=== PATIENT | male | born 1995 | race Caucasian/White ===

== ENCOUNTER 2017-12-22 20:23 | Emergency (ER) | payer BC ==
--- NOTE | 2017-12-22 20:43 | ER Report ---
History and Physical Time Seen By MD: 20:43 Hx. of Stated Complaint: pt states has had "heart" pain for 10 days, tonight it is more pressure, no breathing difficulty, has had "heat flashes" HPI/ROS CHIEF COMPLAINT: chest pain HISTORY OF PRESENT ILLNESS: This is a 22 year old male. He has been having pain, central chest, non-radiating, for about 10 days. Not always there, but most of the time. Sharp and pressure like. Perhaps a little worse with breathing. No fevers or chills. No cough or shortness of breath. No change with eating and swallowing normally. No nausea or vomiting. Normal bowel movements. Normal urina tion. No history of problems like this in the past. Had a GI bug about 2 weeks ago. No history of ulcers or reflux symptoms. No heart problems or lung problems in the past. He is here going to school from [place], [place]. Allergies: Coded Allergies: No Known Drug Allergies (Unverified , 12/22/17) Home Meds No Active Prescriptions or Reported Meds Reviewed Nurses Notes: Yes Hx Substance Use Disorder: No Hx Alcohol Use: Yes (couple on weekends) Constitutional Vital Sign - Last 24 Hours 12/22/17 12/22/17 12/22/17 12/22/17 20:28 20:28 20:53 21:21 Temp 98.9 Pulse 85 83 Resp 20 11 B/P (MAP) 158/100 158/100 (119) 151/86 (107) Pulse Ox 95 94 O2 Delivery Room Air 12/22/17 12/22/17 12/22/17 21:23 21:30 21:35 Pulse 92 80 Resp 16 9 B/P (MAP) 136/92 (107) Pulse Ox 94 94 Physical Exam General Appearance: The patient is alert. No acute distress. Non-toxic in appearance. Eyes: Pupils are equal, round. No pallor, injection or icterus. ENT: Mucous membranes are moist. Normal oral mucosa. Posterior oropharynx is normal. Neck: Supple and non tender. Respiratory: Lungs are clear to auscultation. Cardiovascular: Regular rate and rhythm. No murmurs, gallops or rubs. Normal capillary refill. Gastrointestinal: Abdomen is soft and non tender. Nondistended. Normal active bowel sounds. No costovertebral angle tenderness with percussion. Neurological: Alert and oriented x3. Skin: Warm and dry. No rashes. Musculoskeletal: Extremities are nontender. No tenderness in palpation of the cervical, thoracic and lumbar spine. No pain with palpating chest wall DIFFERENTIAL DIAGNOSIS: After history and physical exam, differential diagnosis was considered for chest pain including but not limited to myocardial ischemia, pericarditis pulmonary embolus, chest wall pain, pleural inflammation and pulmonary infectious causes. Medical Decision Making Data Points Result Diagram: 12/22/17203712/22/172037 Laboratory Hematology Test 12/22/17 20:38 Red Blood Count 5.43 M/uL (4.00-5.60) Mean Corpuscular Volume 89.8 fL (80.0-96.0) Mean Corpuscular Hemoglobin 31.4 pg (26.0-33.0) Mean Corpuscular Hemoglobin Concent 35.0 g/dL (32.0-36.0) Red Cell Distribution Width 13.2 % (11.5-14.5) Mean Platelet Volume 7.6 fL (7.2-11.1) Neutrophils (%) (Auto) 47.2 % (39.4-72.5) Lymphocytes (%) (Auto) 40.1 % (17.6-49.6) Monocytes (%) (Auto) 9.5 % (4.1-12.4) Eosinophils (%) (Auto) 2.3 % (0.4-6.7) Basophils (%) (Auto) 0.9 % (0.3-1.4) Nucleated RBC Relative Count (auto) 0.0 /100WBC Neutrophils # (Auto) 3.4 K/uL (2.0-7.4) Lymphocytes # (Auto) 2.9 K/uL (1.3-3.6) Monocytes # (Auto) 0.7 K/uL (0.3-1.0) Eosinophils # (Auto) 0.2 K/uL (0.0-0.5) Basophils # (Auto) 0.1 K/uL (0.0-0.1) Nucleated RBC Absolute Count (auto) 0.00 K/uL D-Dimer Quantitative (PE/DVT) < 0.27 ug/ml (0-0.50) Sodium Level 140 mmol/L (137-145) Potassium Level 3.6 mmol/L (3.5-5.0) Chloride Level 100 mmol/L (98-107) Carbon Dioxide Level 28 mmol/L (22-30) Blood Urea Nitrogen 14 mg/dl (9-21) Creatinine 1.20 mg/dl (0.66-1.25) Glomerular Filtration Rate Calc > 60.0 Random Glucose 93 mg/dl (75-110) Calcium Level 9.8 mg/dl (8.4-10.2) Total Bilirubin 0.7 mg/dl (0.2-1.3) Aspartate Amino Transf (AST/SGOT) 29 U/L (0-35) Alanine Aminotransferase (ALT/SGPT) 17 U/L (0-56) Alkaline Phosphatase 68 U/L (0-126) Troponin I < 0.012 ng/ml Total Protein 8.3 g/dl (6.3-8.2) Albumin 5.1 g/dl (3.5-5.0) Chemistry Test 12/22/17 20:38 White Blood Count 7.1 k/uL (4.5-11.0) Red Blood Count 5.43 M/uL (4.00-5.60) Hemoglobin 17.1 g/dL (14.0-18.0) Hematocrit 48.7 % (42.0-52.0) Mean Corpuscular Volume 89.8 fL (80.0-96.0) Mean Corpuscular Hemoglobin 31.4 pg (26.0-33.0) Mean Corpuscular Hemoglobin Concent 35.0 g/dL (32.0-36.0) Red Cell Distribution Width 13.2 % (11.5-14.5) Platelet Count 285 K/uL (150-450) Mean Platelet Volume 7.6 fL (7.2-11.1) Neutrophils (%) (Auto) 47.2 % (39.4-72.5) Lymphocytes (%) (Auto) 40.1 % (17.6-49.6) Monocytes (%) (Auto) 9.5 % (4.1-12.4) Eosinophils (%) (Auto) 2.3 % (0.4-6.7) Basophils (%) (Auto) 0.9 % (0.3-1.4) Nucleated RBC Relative Count (auto) 0.0 /100WBC Neutrophils # (Auto) 3.4 K/uL (2.0-7.4) Lymphocytes # (Auto) 2.9 K/uL (1.3-3.6) Monocytes # (Auto) 0.7 K/uL (0.3-1.0) Eosinophils # (Auto) 0.2 K/uL (0.0-0.5) Basophils # (Auto) 0.1 K/uL (0.0-0.1) Nucleated RBC Absolute Count (auto) 0.00 K/uL D-Dimer Quantitative (PE/DVT) < 0.27 ug/ml (0-0.50) Glomerular Filtration Rate Calc > 60.0 Calcium Level 9.8 mg/dl (8.4-10.2) Total Bilirubin 0.7 mg/dl (0.2-1.3) Aspartate Amino Transf (AST/SGOT) 29 U/L (0-35) Alanine Aminotransferase (ALT/SGPT) 17 U/L (0-56) Alkaline Phosphatase 68 U/L (0-126) Troponin I < 0.012 ng/ml Total Protein 8.3 g/dl (6.3-8.2) Albumin 5.1 g/dl (3.5-5.0) Coagulation Test 12/22/17 20:38 D-Dimer Quantitative (PE/DVT) < 0.27 ug/ml EKG/Imaging EKG Interpretation 12 lead EKG: Rhythm: normal sinus rhythm, rate 76 [place]: normal QRS: Incomplete right bundle branch block ST segments: No ST elevation or depression noted Imaging CHEST: Indication: Chest pain. Technique: Frontal and lateral views were obtained. Comparison: None. 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 No acute skeletal deformity is identified. Heart and mediastinum: Within normal limits. Lung fournier: Well-expanded and clear. Pleural spaces: Unremarkable. Impression: No acute process. Report Dictated By: Paul Mccormack MD at 12/22/2017 9:44 PM ED Course/Re-evaluation Clinical Indication for ER IV: IV Access ED Course Workup negative with negative labs, EKG and chest x-ray. Recommended follow-up with [facility]. See instructions below. Decision to Disposition Date: Dec 22, 2017 Decision to Disposition Time: 21:55 Depart Departure Latest Vital Signs Vital Signs Date Time Temp Pulse Resp B/P (MAP) Pulse Ox O2 Delivery O2 Flow Rate FiO2 8/28/18 21:35 80 9 94 12/22/17 21:30 136/92 (107) 12/22/17 20:28 98.9 Room Air Impression: Primary Impression: Chest pain Condition: Improved Disposition: HOME OR SELF-CARE New Scripts No Active Prescriptions or Reported Meds Patient Instructions: Chest Pain (ED) Additional Instructions: Your chest pain was evaluated tonight and we were not able to find anything dangerous at this time. We do recommend follow-up with [facility]. No sign of heart attack, blood clots in lungs, or pulmonary infection. Pain could be due to acid reflux, or gastritis or ulcer disease, but this would need further evaluation. You can start an anti-acid medicine in the meantime. We would recommend starting with Zantac 150mg (Ranitidine) twice a day or Pepcid 20mg (Famotidine) twice a day. The other problem that could be causing pain is possible inflammation in the ribs/cartilage area or the lining of the lungs. We usually have people take some Ibuprofen for this, however, this can be irritating to the stomach, so take it with the above medication and take it with food. Problem Qualifiers Primary Impression: Chest pain Chest pain type: unspecified Qualified Codes: R07.9 - Chest pain, unspecified FAROOQ COREAS MD Dec 22, 2017 20:43
[2017-12-22] MEDS ORDERED: ASPIRIN 81 MG CHEW PO ONE (20:50)
[2017-12-22] MEDS ORDERED: PANTOPRAZOLE SOD 40 MG IV VIAL IVP ONE (20:50)
[2017-12-22 20:59] LABS: PLATELET COUNT, AUTOMATED 285 K/uL (150-450)
[2017-12-22 21:30] VITALS: BP 136/92
--- NOTE | 2017-12-22 21:49 | RADIOLOGY IMAGING REPORT ---
FACILITY: [facility] [place] PATIENT NAME: Pascual Britton : 1995 MR: [id number] V: [id number] EXAM DATE: ORDERING PHYSICIAN: FAROOQ COREAS TECHNOLOGIST: Location: [facility] Patient: Pascual Britton : 1995 Visit/Account:[id number] Date of Sevice: 12/22/2017 CHEST: Indication: Chest pain. Technique: Frontal and lateral views were obtained. Comparison: None. Skeletal and soft tissue structures: There is mild degenerative disc disease in the lower thoracic sp ine. No acute skeletal deformity is identified. Heart and mediastinum: Within normal limits. Lung fournier: Well-expanded and clear. Pleural spaces: Unremarkable. Impression: No acute process. Report Dictated By: Paul Mccormack MD at 12/22/2017 9:44 PM Report E-Signed By: Paul Mccormack MD at 12/22/2017 9:45 PM [id number]
--- NOTE | 2017-12-22 22:03 | EKG ---
FACILITY: [facility] [place] PATIENT NAME: MELISSA CORCORAN : [id number] MR: [id number] V: [id number] EXAM DATE: ORDERING PHYSICIAN: FAROOQ COREAS TECHNOLOGIST: ALLAN Test Reason : CARDIAC Blood Pressure : / mmHG Vent. Rate : 076 BPM Atrial Rate : 076 BPM P-R Int : 156 ms QRS Dur : 112 ms QT Int : 360 ms P-R-T Axes : 080 083 045 degrees QTc Int : 405 ms Normal sinus rhythm Incomplete right bundle branch block Borderline ECG No previous ECGs available Confirmed by KRYSTIN ENCARNACION ([id number]) on 12/23/2017 6:32:51 AM Referred By: Confirmed By:KRYSTIN ENCARNACION
== END 2017-12-22 22:03 | disposition home or self-care (01) ==
LOC: ER 20:57
DX: R07.89 Other chest pain (principal)
CPT/HCPCS: 71046; 84484; 85025; 85379; 93005; 96374; 99284; C9113; 82040; 82247; 82310; 82374; 82435; 82565; 82947; 84075; 84132; 84155; 84295; 84450; 84460; 84520